=== PATIENT | male | born 1950 | race Caucasian/White ===

== ENCOUNTER 2021-05-20 12:09 | Emergency (ER) | payer BC, MEDICARE ==
[~2021-05-20] VITALS: Ht 182.9 cm; Wt 95.5 kg
[~2021-05-20 12:09] MED LIST: ALLOPURINOL300 MG PO; LISINOPRIL10 MG PO
[2021-05-20] MEDS ORDERED: LIDOCAINE HCL 1% LOCAL INJ 20 ML VIAL INJ STA (12:20)
[2021-05-20] MEDS ORDERED: LIDOCAINE HCL 1% LOCAL INJ 20 ML VIAL INJ ONE (12:30)
[2021-05-20] MEDS ORDERED: TYLENOL # 31 EA PO (13:11)
== END 2021-05-20 13:19 | disposition home or self-care (01) ==
LOC: FSED 12:17
DX: S63.632A Sprain of interphalangeal joint of right middle finger, initial encounter (principal); W23.1XXA Caught, crushed, jammed, or pinched between stationary objects, initial encounter; Y92.008 Other place in unspecified non-institutional (private) residence as the place of occurrence of the external cause
CPT/HCPCS: 29130; 73140; 96372; 99284; J2001

== ENCOUNTER 2021-05-20 19:59 | Emergency (ER) | payer MEDICARE ==
[~2021-05-20] VITALS: Ht 182.9 cm; Wt 95.3 kg
[~2021-05-20 19:59] MED LIST changes: +TYLENOL # 31 EA PO
== END 2021-05-20 20:29 | disposition home or self-care (01) ==
LOC: ER 20:06
DX: M79.89 Other specified soft tissue disorders (principal); S63.632A Sprain of interphalangeal joint of right middle finger, initial encounter; M10.9 Gout, unspecified; W23.1XXA Caught, crushed, jammed, or pinched between stationary objects, initial encounter; Y92.008 Other place in unspecified non-institutional (private) residence as the place of occurrence of the external cause; I10 Essential (primary) hypertension
CPT/HCPCS: 99283

== ENCOUNTER 2021-05-22 10:58 | Inpatient (IN) | payer MEDICARE ==
[~2021-05-22] VITALS: Ht 182.9 cm; Wt 95.3 kg
[2021-05-22] MEDS ORDERED: ONDANSETRON HCL INJ 2MG/ML 2ML 2 MG/ML VIAL IV NR (11:40)
[2021-05-22] MEDS ORDERED: MORPHINE SULFATE INJ 4 MG/ML INJ 1ML IV NR (11:40)
[2021-05-22] MEDS ORDERED: Vancomycin IV 1 GM in SODIUM CHLORIDE 0.9% 250ML 250 ML IV ONE (11:45)
[2021-05-22] MEDS ORDERED: PIPERACILLIN/TAZOBACTAM 3.375 GM in SODIUM CHLORIDE 0.9% 50ML 50 ML IV ONE (11:45)
[2021-05-22 11:49] LABS: BASOPHILS % 0.3 % (0.0-1.0); EOSINOPHILS # (AUTO) 0.1 (0.0-0.4); EOSINOPHILS % 0.8 % (0.0-6.0); HEMATOCRIT 46.4 % (38.2-49.6); HEMOGLOBIN 15.7 g/dL (14.0-18.0); LYMPHOCYTES # (AUTO) 1.5 (1.0-3.2); LYMPHOCYTES % 12.4 % (18.0-39.1); MEAN CORPUSCULAR HEMOGLOBIN 32.4 pg (28-32); MEAN CORPUSCULAR HGB CONC 33.8 g/dL (31-35); MEAN CORPUSCULAR VOLUME 95.9 fL (81-99); MONOCYTES # (AUTO) 0.8 (0.2-0.8); MONOCYTES % 6.9 % (4.4-11.3); NEUTROPHILS # (AUTO) 9.3 (2.1-6.9); NEUTROPHILS % 79.3 % (38.7-80.0); PLATELET COUNT 227 x10e3/uL (140-360); RED BLOOD COUNT 4.84 x10e6/uL (4.3-5.7); RED CELL DISTRIBUTION WIDTH 13.4 % (11.7-14.4)
[2021-05-22 11:59] LABS: INR 0.95; PROTHROMBIN TIME 13.3 seconds (11.9-14.5)
[2021-05-22 12:00] LABS: PARTIAL THROMBOPLASTIN TIME 30.8 seconds (23.8-35.5)
[2021-05-22 12:07] LABS: ALBUMIN 3.3 g/dL (3.5-5.0); ALBUMIN/GLOBULIN RATIO 0.9 (0.8-2.0); ANION GAP 12.6 mmol/L (8-16); CALCIUM 9.3 mg/dL (8.4-10.2); CREATININE, SERUM 0.81 mg/dL (0.72-1.25); POTASSIUM 3.6 mmol/L (3.5-5.1)
[2021-05-22] MEDS ORDERED: ONDANSETRON HCL INJ 2MG/ML 2ML 2 MG/ML VIAL IV PRN (13:30)
[2021-05-22] MEDS: SODIUM CHLORIDE 0.9% 1000ML 1,000 ML IV SCH (15:05)
[2021-05-22] MEDS: MORPHINE SULFATE INJ 4 MG/ML INJ 1ML IV PRN (16:15)
[2021-05-22 17:33] VITALS: BP 122/71
[2021-05-22 17:48] VITALS: BP 122/71
[2021-05-22 17:53] VITALS: BP 122/71
[2021-05-22 17:57] LABS: BASOPHILS # (AUTO) 0.1 (0.0-0.1); BASOPHILS % 0.4 % (0.0-1.0); EOSINOPHILS # (AUTO) 0.2 (0.0-0.4); HEMATOCRIT 48.7 % (38.2-49.6); HEMOGLOBIN 16.1 g/dL (14.0-18.0); LYMPHOCYTES % 17.1 % (18.0-39.1); MEAN CORPUSCULAR HEMOGLOBIN 32.1 pg (28-32); MEAN CORPUSCULAR HGB CONC 33.1 g/dL (31-35); MONOCYTES # (AUTO) 0.8 (0.2-0.8); NEUTROPHILS # (AUTO) 8.5 (2.1-6.9); NEUTROPHILS % 72.9 % (38.7-80.0); PLATELET COUNT 229 x10e3/uL (140-360); RED BLOOD COUNT 5.02 x10e6/uL (4.3-5.7); RED CELL DISTRIBUTION WIDTH 13.5 % (11.7-14.4)
[2021-05-22] MEDS: PIPERACILLIN/TAZOBACTAM 3.375 GM in SODIUM CHLORIDE 0.9% 50ML 50 ML IV SCH (18:00)
[2021-05-22 18:15] LABS: ANION GAP 15.6 mmol/L (8-16); CALCIUM 9.7 mg/dL (8.4-10.2); CREATININE, SERUM 0.78 mg/dL (0.72-1.25); POTASSIUM 3.6 mmol/L (3.5-5.1)
[2021-05-22 20:00] VITALS: BP 124/73
[2021-05-22] MEDS: Vancomycin IV 1 GM in SODIUM CHLORIDE 0.9% 250ML 250 ML IV SCH (22:51)
[2021-05-23] VITALS: BP 131/89
[2021-05-23] MEDS: SODIUM CHLORIDE 0.9% 1000ML 1,000 ML IV SCH (00:46)
[2021-05-23] MEDS: PIPERACILLIN/TAZOBACTAM 3.375 GM in SODIUM CHLORIDE 0.9% 50ML 50 ML IV SCH ×3 (00:46→12:04)
[2021-05-23 04:00] VITALS: BP 130/78
[2021-05-23 04:57] LABS: BASOPHILS # (AUTO) 0.1 (0.0-0.1); BASOPHILS % 0.6 % (0.0-1.0); EOSINOPHILS # (AUTO) 0.2 (0.0-0.4); EOSINOPHILS % 2.3 % (0.0-6.0); HEMATOCRIT 44.3 % (38.2-49.6); HEMOGLOBIN 14.7 g/dL (14.0-18.0); LYMPHOCYTES # (AUTO) 1.6 (1.0-3.2); LYMPHOCYTES % 15.8 % (18.0-39.1); MEAN CORPUSCULAR HEMOGLOBIN 32.5 pg (28-32); MEAN CORPUSCULAR HGB CONC 33.2 g/dL (31-35); MEAN CORPUSCULAR VOLUME 97.8 fL (81-99); MONOCYTES # (AUTO) 0.9 (0.2-0.8); MONOCYTES % 9.5 % (4.4-11.3); NEUTROPHILS % 71.4 % (38.7-80.0); PLATELET COUNT 216 x10e3/uL (140-360); RED BLOOD COUNT 4.53 x10e6/uL (4.3-5.7); RED CELL DISTRIBUTION WIDTH 13.5 % (11.7-14.4)
[2021-05-23 05:23] LABS: ALBUMIN 2.9 g/dL (3.5-5.0); ALBUMIN/GLOBULIN RATIO 0.9 (0.8-2.0); ANION GAP 13.8 mmol/L (8-16); CALCIUM 8.7 mg/dL (8.4-10.2); CREATININE, SERUM 0.82 mg/dL (0.72-1.25); POTASSIUM 3.8 mmol/L (3.5-5.1)
[2021-05-23 07:45] VITALS: BP 125/85
[2021-05-23 08:07] VITALS: BP 125/85
[2021-05-23] MEDS: LISINOPRIL 10 MG TAB PO SCH (09:10)
[2021-05-23] MEDS: Vancomycin IV 1 GM in SODIUM CHLORIDE 0.9% 250ML 250 ML IV SCH ×2 (09:10→21:00)
[2021-05-23] MEDS: MORPHINE SULFATE INJ 4 MG/ML INJ 1ML IV PRN (09:10)
[2021-05-23] MEDS ORDERED: DIPHENHYDRAMINE HCL ELIX 12.5 MG/5 ML UDC PO ONE (13:45)
[2021-05-23] MEDS: EPSOM SALT 454 GM POWD TOP SCH ×2 (14:00→21:00)
[2021-05-23] MEDS: FAMOTIDINE 20 MG TAB PO SCH (14:00)
[2021-05-23] MEDS: HYDROCODONE/APAP 5MG-325MG TAB PO PRN (14:40)
[2021-05-23 15:22] VITALS: BP 117/75
[2021-05-23 19:39] VITALS: BP 127/96
[2021-05-24] VITALS (7 sets, daily range): BP systolic 126–151; BP diastolic 76–96
[2021-05-24 05:04] LABS: BASOPHILS # (AUTO) 0.1 (0.0-0.1); BASOPHILS % 0.7 % (0.0-1.0); EOSINOPHILS # (AUTO) 0.2 (0.0-0.4); EOSINOPHILS % 3.1 % (0.0-6.0); HEMATOCRIT 43.2 % (38.2-49.6); HEMOGLOBIN 14.4 g/dL (14.0-18.0); LYMPHOCYTES # (AUTO) 1.4 (1.0-3.2); LYMPHOCYTES % 18.5 % (18.0-39.1); MEAN CORPUSCULAR HEMOGLOBIN 32.5 pg (28-32); MEAN CORPUSCULAR HGB CONC 33.3 g/dL (31-35); MEAN CORPUSCULAR VOLUME 97.5 fL (81-99); MONOCYTES # (AUTO) 0.7 (0.2-0.8); MONOCYTES % 9.4 % (4.4-11.3); NEUTROPHILS # (AUTO) 5.2 (2.1-6.9); NEUTROPHILS % 67.9 % (38.7-80.0); PLATELET COUNT 246 x10e3/uL (140-360); RED BLOOD COUNT 4.43 x10e6/uL (4.3-5.7); RED CELL DISTRIBUTION WIDTH 13.2 % (11.7-14.4)
[2021-05-24 05:20] LABS: ANION GAP 9.1 mmol/L (8-16); CALCIUM 8.7 mg/dL (8.4-10.2); CREATININE, SERUM 0.85 mg/dL (0.72-1.25); POTASSIUM 4.1 mmol/L (3.5-5.1)
[2021-05-24] MEDS ORDERED: MUPIROCIN 2% OINT 22 GM TUBE ONE (07:28)
[2021-05-24] MEDS ORDERED: MEPERIDINE HCL INJ 25 MG/ML VIAL ONE (07:57)
[2021-05-24] MEDS ORDERED: CEFTRIAXONE 1 GM in SODIUM CHLORIDE 0.9% 50ML 50 ML IV SCH (09:00)
[2021-05-24] MEDS ORDERED: CEFTRIAXONE 1 GM VIAL IV SCH (09:00)
[2021-05-24] MEDS: HYDROCODONE/APAP 5MG-325MG TAB PO PRN (09:19)
[2021-05-24] MEDS: LISINOPRIL 10 MG TAB PO SCH (09:26)
[2021-05-24] MEDS: FAMOTIDINE 20 MG TAB PO SCH (09:26)
[2021-05-24] MEDS: Vancomycin IV 1 GM in SODIUM CHLORIDE 0.9% 250ML 250 ML IV SCH (09:50)
[2021-05-24] MEDS ORDERED: DEXAMETHASONE SOD PHOS INJ 4 MG/ML VIAL ONE (12:05)
[2021-05-24] MEDS ORDERED: POVIDONE IODINE 0.05% 0.05 % ML PO ONE (12:05)
[2021-05-24] MEDS ORDERED: ONDANSETRON HCL INJ 2MG/ML 2ML 2 MG/ML VIAL ONE (12:05)
[2021-05-24] MEDS ORDERED: LIDOCAINE HCL 2% LOCAL INJ 5 ML SDV VIAL INJ ONE (12:05)
[2021-05-24] MEDS ORDERED: PROPOFOL IV EMULSION 10 MG/ML 20 ML VIAL ONE (12:05)
[2021-05-24] MEDS ORDERED: SEVOFLURANE INHAL SOLN 250 ML PEN BTL ONE (12:05)
[2021-05-24] MEDS ORDERED: FENTANYL CITRATE/PF 100MCG/2 ML INJ ONE (13:54)
[2021-05-24] MEDS ORDERED: MIDAZOLAM HCL 2 MG/2 ML VIAL ONE (13:54)
== END 2021-05-24 17:19 | disposition home or self-care (01) | DRG 603 ==
LOC: ER 11:50 → ERHOLD 13:33 → MED/SURG2 16:26
PROVIDERS: ADMIT Internal Medicine; ATTEND Internal Medicine
PROC: 0PSTXZZ Reposition Right Finger Phalanx, External Approach (ICD-10-PCS; 2021-05-24)
PROC: 0JDJ3ZZ Extraction of Right Hand Subcutaneous Tissue and Fascia, Percutaneous Approach (ICD-10-PCS; principal; 2021-05-24 07:00)
DX: L03.011 Cellulitis of right finger (principal); S56.493A Other injury of extensor muscle, fascia and tendon of right middle finger at forearm level, initial encounter; M20.011 Mallet finger of right finger(s); I10 Essential (primary) hypertension; M10.9 Gout, unspecified; Z87.891 Personal history of nicotine dependence; W23.0XXA Caught, crushed, jammed, or pinched between moving objects, initial encounter; Y93.89 Activity, other specified; R21 Rash and other nonspecific skin eruption; B95.62 Methicillin resistant Staphylococcus aureus infection as the cause of diseases classified elsewhere
CPT/HCPCS: 36415; 80048; 80053; 80202; 83036; 85025; 85610; 85730; 87040; 87071; 87075; 87186; 87205; 99251; 99284; J0696; J1100; J2001; J2175; J2250; J2270; J2405; J2543; J3010; J3370; J7030; J7050